=== PATIENT | female | born 1945 | race Caucasian/White ===

== ENCOUNTER 2024-04-22 08:26 | Inpatient (IN) ==
[2024-04-22] MEDS ORDERED: IOPAMIDOL 100 ML BOTTLE IV ONE (08:27)
[2024-04-22 10:02] LABS: Basophils # (Auto) 0.04 K/mcL (0.00-0.30); Basophils % (Auto) 0.7 % (0.0-2.0); Eosinophils # (Auto) 0.39 K/mcL (0.00-0.70); Eosinophils % (Auto) 6.5 % (0.0-7.0); Hematocrit 34.4 % (34.1-44.9); Hemoglobin 10.7 g/dL (11.2-15.7); Lymphocytes % (Auto) 26.5 % (15.5-49.0); Mean Cell Volume 92.7 fL (80.0-100.0); Mean Corpuscular HGB Conc 31.1 g/dL (31.0-36.0); Mean Platelet Volume 11.2 fL (8.8-12.5); Monocytes # (Auto) 0.61 K/mcL (0.10-0.90); Monocytes % (Auto) 10.1 % (1.0-12.0); Platelet Count 201 K/mcL (140-440); RBC 3.71 M/mcL (3.59-5.38)
[2024-04-22 10:12] LABS: Erythrocyte Sedimentation Rate 10 mm/hr (0-30)
[2024-04-22 10:18] LABS: Blood Urea Nitrogen 21 mg/dL (8-23); Calcium 10.7 mg/dL (8.6-10.4); Carbon Dioxide 29 mmol/L (22-30); Chloride 105 mmol/L (96-108); Glomerular Filtration Rate 60; Glucose 103 mg/dL (70-105)
[2024-04-22] MEDS: PIPERACILLIN SODIUM/TAZOBACTAM 3.375 GM in DEXTROSE 5% IN WATER 50 ML IV ONE (12:01)
[2024-04-22] MEDS: diphenhydrAMINE 50 MG/ML VIAL IV ONE (13:11)
[2024-04-22] MEDS ORDERED: POTASSIUM CHLORIDE 40 MEQ in DEXTROSE 5% IN WATER 500 ML IV PRN (15:41)
[2024-04-22] MEDS ORDERED: POTASSIUM CHLORIDE 20 MEQ TABLET PO PRN ×2 (15:41)
[2024-04-22] MEDS ORDERED: POLYETHYLENE GLYCOL 3350 17 GM PACKET PO PRN (15:41)
[2024-04-22] MEDS ORDERED: HYDROcodone/APAP 5/325MG TABLET PO PRN (15:41)
[2024-04-22] MEDS ORDERED: DEXTROSE 31 GM ORAL.SUSP PO PRN (15:41)
[2024-04-22] MEDS ORDERED: IPRATROPIUM/ALBUTEROL 3 ML AMPUL.NEB NEB PRN (15:41)
[2024-04-22] MEDS ORDERED: SENNOSIDES 1 TABLET PO PRN (15:41)
[2024-04-22] MEDS ORDERED: MAGNESIUM SULFATE 2 GM/50 ML BAG IV PRN (15:41)
[2024-04-22] MEDS ORDERED: morphine 4 MG/ML VIAL IV PRN (15:41)
[2024-04-22] MEDS ORDERED: ENALAPRILAT 1.25 MG/ML VIAL IV PRN (15:41)
[2024-04-22] MEDS ORDERED: DEXTROSE 50% 50 ML VIAL IV PRN (15:41)
[2024-04-22] MEDS: hydrALAZINE 20 MG/ML VIAL IV PRN (16:30)
[2024-04-22] MEDS: amLODIPine 5 MG TABLET PO SCH (16:31)
[2024-04-22] MEDS: 0.9 % SODIUM CHLORIDE 10 ML SYRINGE IV SCH (16:32)
[2024-04-22] MEDS: 0.9 % SODIUM CHLORIDE 1,000 ML IV SCH (16:33)
[2024-04-22] MEDS: metroNIDAZOLE 500 MG/100 ML BAG IV SCH (16:48)
[2024-04-22] MEDS: INSULIN LISPRO 1 UNIT/0.01 ML UNIT SQ SCH (17:03)
[2024-04-22] MEDS: CEFEPIME 2 GM VIAL IV SCH (18:03)
[2024-04-22] MEDS: HEPARIN 5,000 UNIT/ML VIAL SQ SCH (20:42)
[2024-04-22] MEDS: DOCUSATE SODIUM 100 MG CAPSULE PO SCH (20:44)
[2024-04-23] MEDS: ONDANSETRON 4 MG/2 ML VIAL IV PRN (06:37)
[2024-04-23 06:42] LABS: Basophils # (Auto) 0.04 K/mcL (0.00-0.30); Basophils % (Auto) 0.8 % (0.0-2.0); Eosinophils # (Auto) 0.38 K/mcL (0.00-0.70); Eosinophils % (Auto) 7.6 % (0.0-7.0); Hematocrit 32.7 % (34.1-44.9); Hemoglobin 10.4 g/dL (11.2-15.7); Lymphocytes # (Auto) 1.48 K/mcL (1.50-4.80); Lymphocytes % (Auto) 29.8 % (15.5-49.0); Mean Cell Volume 91.3 fL (80.0-100.0); Mean Corpuscular HGB Conc 31.8 g/dL (31.0-36.0); Mean Platelet Volume 11.5 fL (8.8-12.5); Monocytes # (Auto) 0.53 K/mcL (0.10-0.90); Monocytes % (Auto) 10.7 % (1.0-12.0); Neutrophils % (Auto) 50.7 % (38.0-78.0); Platelet Count 199 K/mcL (140-440); RBC 3.58 M/mcL (3.59-5.38); Red Cell Distribution Width 14.3 % (11.5-14.5)
[2024-04-23 07:00] LABS: ALT/SGPT < 5 U/L (<40); AST/SGOT 23 U/L (<32); Albumin 3.5 gm/dL (3.2-5.2); Albumin/Globulin Ratio 1.6 (1.0-2.3); Alkaline Phosphatase 44 U/L (39-117); Bilirubin,Direct < 0.2 mg/dL (0-0.3); Bilirubin,Total 0.2 mg/dL (0.1-1.0); Blood Urea Nitrogen 24 mg/dL (8-23); Calcium 9.9 mg/dL (8.6-10.4); Carbon Dioxide 25 mmol/L (22-30); Chloride 107 mmol/L (96-108); Globulin 2.2 gm/dL (2.2-3.7); Glomerular Filtration Rate 60; Glucose 104 mg/dL (70-105); Lactate Dehydrogenase 170 U/L (135-225); Phosphorous 3.1 mg/dL (2.5-4.5); Triglycerides 115 mg/dL (<150); Uric Acid 4.4 mg/dL (2.5-8.0)
[2024-04-23 08:58] LABS: INR 1.1 (0.9-1.1); Prothrombin Time 14.6 sec (11.9-14.5)
[2024-04-23 09:20] LABS: Hemoglobin A1C 6.2 % Hgb (4.0-6.0)
[2024-04-23] MEDS: ACETAMINOPHEN 1,000 MG/100 ML BAG IV PRN (10:31)
[2024-04-23] MEDS ORDERED: LACTATED RINGERS 250 ML IV PRN (12:04)
[2024-04-23] MEDS ORDERED: ONDANSETRON 4 MG/2 ML VIAL IV PRN (12:04)
[2024-04-23] MEDS ORDERED: fentaNYL 100 MCG/2 ML VIAL IV PRN (12:04)
[2024-04-23] MEDS ORDERED: IPRATROPIUM/ALBUTEROL 3 ML AMPUL.NEB NEB PRN (12:04)
[2024-04-23] MEDS: VANCOMYCIN 1 GM VIAL TOPICAL SCH (12:11)
[2024-04-23] MEDS ORDERED: ePHEDrine 50 MG/5 ML SYRINGE (ANEST) IV ONE (12:19)
[2024-04-23] MEDS ORDERED: PROPOFOL 200 MG/20 ML VIAL IV ONE (12:19)
[2024-04-23] MEDS ORDERED: ONDANSETRON 4 MG/2 ML VIAL ONE (12:19)
[2024-04-23] MEDS ORDERED: PHENYLephrine 1 MG/10 ML SYRINGE (ANEST) ONE (12:19)
[2024-04-23] MEDS: LACTATED RINGERS 1,000 ML IV SCH (12:52)
[2024-04-24 06:27] LABS: Basophils # (Auto) 0.03 K/mcL (0.00-0.30); Basophils % (Auto) 0.6 % (0.0-2.0); Eosinophils # (Auto) 0.15 K/mcL (0.00-0.70); Eosinophils % (Auto) 3.1 % (0.0-7.0); Hematocrit 31.4 % (34.1-44.9); Hemoglobin 9.8 g/dL (11.2-15.7); Lymphocytes # (Auto) 1.57 K/mcL (1.50-4.80); Lymphocytes % (Auto) 32.5 % (15.5-49.0); Mean Cell Volume 92.1 fL (80.0-100.0); Mean Corpuscular HGB Conc 31.2 g/dL (31.0-36.0); Mean Platelet Volume 11.8 fL (8.8-12.5); Monocytes # (Auto) 0.41 K/mcL (0.10-0.90); Monocytes % (Auto) 8.5 % (1.0-12.0); Neutrophils % (Auto) 55.1 % (38.0-78.0); Platelet Count 213 K/mcL (140-440); RBC 3.41 M/mcL (3.59-5.38); Red Cell Distribution Width 14.3 % (11.5-14.5); WBC 4.8 K/mcL (4.5-11.0)
[2024-04-24 07:02] LABS: ALT/SGPT < 5 U/L (<40); AST/SGOT 20 U/L (<32); Albumin 3.5 gm/dL (3.2-5.2); Albumin/Globulin Ratio 1.6 (1.0-2.3); Alkaline Phosphatase 40 U/L (39-117); Bilirubin,Direct < 0.2 mg/dL (0-0.3); Bilirubin,Total 0.2 mg/dL (0.1-1.0); Blood Urea Nitrogen 24 mg/dL (8-23); Calcium 9.6 mg/dL (8.6-10.4); Carbon Dioxide 24 mmol/L (22-30); Chloride 107 mmol/L (96-108); Globulin 2.2 gm/dL (2.2-3.7); Glomerular Filtration Rate 60; Glucose 98 mg/dL (70-105); Lactate Dehydrogenase 173 U/L (135-225); Phosphorous 2.5 mg/dL (2.5-4.5); Triglycerides 131 mg/dL (<150); Uric Acid 4.8 mg/dL (2.5-8.0)
[2024-04-25] MEDS: ACETAMINOPHEN 325 MG TABLET PO PRN (05:52)
[2024-04-25 06:45] LABS: Basophils # (Auto) 0.05 K/mcL (0.00-0.30); Eosinophils # (Auto) 0.19 K/mcL (0.00-0.70); Eosinophils % (Auto) 3.6 % (0.0-7.0); Hematocrit 35.4 % (34.1-44.9); Hemoglobin 11.1 g/dL (11.2-15.7); Lymphocytes # (Auto) 1.83 K/mcL (1.50-4.80); Lymphocytes % (Auto) 34.9 % (15.5-49.0); Mean Corpuscular HGB Conc 31.4 g/dL (31.0-36.0); Mean Platelet Volume 11.6 fL (8.8-12.5); Monocytes # (Auto) 0.32 K/mcL (0.10-0.90); Monocytes % (Auto) 6.1 % (1.0-12.0); Neutrophils % (Auto) 54.2 % (38.0-78.0); Platelet Count 265 K/mcL (140-440); RBC 3.89 M/mcL (3.59-5.38); WBC 5.3 K/mcL (4.5-11.0)
[2024-04-25 06:56] LABS: ALT/SGPT < 5 U/L (<40); AST/SGOT 26 U/L (<32); Albumin 3.9 gm/dL (3.2-5.2); Albumin/Globulin Ratio 1.6 (1.0-2.3); Alkaline Phosphatase 45 U/L (39-117); Bilirubin,Direct < 0.2 mg/dL (0-0.3); Bilirubin,Total 0.3 mg/dL (0.1-1.0); Blood Urea Nitrogen 20 mg/dL (8-23); Calcium 9.9 mg/dL (8.6-10.4); Carbon Dioxide 22 mmol/L (22-30); Chloride 105 mmol/L (96-108); Globulin 2.5 gm/dL (2.2-3.7); Glomerular Filtration Rate 69; Glucose 121 mg/dL (70-105); Lactate Dehydrogenase 198 U/L (135-225); Phosphorous 1.8 mg/dL (2.5-4.5); Triglycerides 138 mg/dL (<150); Uric Acid 4.3 mg/dL (2.5-8.0)
[2024-04-25] MEDS: PROMETHAZINE 25 MG TABLET PO ONE (10:14)
[2024-04-25] MEDS: SODIUM PHOSPHATE 30 MMOL in DEXTROSE 5% IN WATER 500 ML IV ONE (12:59)
[2024-04-25 13:42] LABS: Blood Urea Nitrogen 19 mg/dL (8-23); Carbon Dioxide 24 mmol/L (22-30); Chloride 102 mmol/L (96-108); Glomerular Filtration Rate 60; Glucose 151 mg/dL (70-105)
[2024-04-26 07:09] LABS: Basophils # (Auto) 0.05 K/mcL (0.00-0.30); Basophils % (Auto) 1.2 % (0.0-2.0); Eosinophils # (Auto) 0.28 K/mcL (0.00-0.70); Eosinophils % (Auto) 6.8 % (0.0-7.0); Hemoglobin 9.6 g/dL (11.2-15.7); Lymphocytes % (Auto) 38.9 % (15.5-49.0); Mean Cell Volume 93.1 fL (80.0-100.0); Mean Platelet Volume 11.7 fL (8.8-12.5); Monocytes # (Auto) 0.47 K/mcL (0.10-0.90); Monocytes % (Auto) 11.4 % (1.0-12.0); Neutrophils % (Auto) 41.5 % (38.0-78.0); Platelet Count 191 K/mcL (140-440); RBC 3.33 M/mcL (3.59-5.38); Red Cell Distribution Width 14.2 % (11.5-14.5); WBC 4.1 K/mcL (4.5-11.0)
[2024-04-26 08:01] LABS: Blood Urea Nitrogen 19 mg/dL (8-23); Carbon Dioxide 25 mmol/L (22-30); Chloride 108 mmol/L (96-108); Glomerular Filtration Rate 69; Glucose 85 mg/dL (70-105)
[2024-04-26] MEDS: POTASSIUM PHOSPHATE 20 MEQ in DEXTROSE 5% IN WATER 250 ML IV SCH (09:21)
== END 2024-04-26 13:25 | DRG 638 ==
LOC: ED 08:26 → MEDSUR 15:29
PROVIDERS: ADMIT Internal Medicine; ATTEND Student in an Organized Health Care Education/Training Program